=== PATIENT | female | born 1955 ===

== ENCOUNTER → 2017-07-22 | Outpatient (CLI) | payer OTHER ==
--- NOTE | 2017-07-22 16:19 | RADIOLOGY IMAGING REPORT ---
FACILITY: [facility] - [place], [place] PATIENT NAME: Nazanin Horan : 1955 MR: [id number] V: [id number] EXAM DATE: ORDERING PHYSICIAN: SELIN VELAZQUEZ TECHNOLOGIST: Location: [facility] Patient: Nazanin Horan : 1955 Visit/Account:[id number] Date of Sevice: 07/22/2017 THYROID HISTORY: Thyroid nodules COMPARISON: None. FINDINGS: SIZE: Right lobe: 6.2 x 2.6 x 1.7 cm cm Left lobe: 5.7 x 2 x 1.9 cm cm Isthmus: 7 mm PARENCHYMA: Homogeneous. NODULES: Right lobe: * Is a 3 mm well-circumscribed hypoechoic nodule in the mid right lobe Left lobe: * There are two small well-circumscribed hypoechoic nodules in the superior pole the left lobe large st measuring 4.3 mm Isthmus: * None discrete. VASCULARITY: Within normal limits. ADDITIONAL FINDINGS: None. IMPRESSION: Subcentimeter thyroid nodules bilaterally as described REFERENCE: 2015 [employer] [employer] Management Guidelines for Adult Patients with Thyroid Nodules and D ifferentiated Thyroid Cancer: The [place] [employer] Guidelines Task Force on Thyroid Nodul es and Differentiated Thyroid Cancer. SONOGRAPHIC PATTERNS: * Benign: Purely cystic nodules (no solid component); estimated risk of malignancy <1 percent; no bi opsy recommended. * Very Low Suspicion: Spongiform or partially cystic nodules without any of the sonographic features described in low, intermediate, or high suspicion patterns; estimated risk of malignancy <3 percent; consider FNA at > 2 cm (Observation without FNA is also a reasonable option). * Low Suspicion: Isoechoic or hyperechoic solid nodule, or partially cystic nodule with eccentric so lid areas, without microcalcification, irregular margin or ETE (extra-thyroidal extension), or taller than wide shape; estimated risk of malignancy 5-10 percent; recommend FNA at >1.5 cm. * Intermediate Suspicion: Hypoechoic solid nodule with smooth margins without microcalcifications, E TE (extra-thyroidal extension), or taller than wide shape; estimated risk of malignancy 10-20 percent ; recommend FNA at > 1 cm. * High Suspicion: Solid hypoechoic nodule or solid hypoechoic component of a partially cystic nodule with one or more of the following features: irregular margins (infiltrative, microlobulated), microc alcifications, taller than wide shape, rim calcifications with small extrusive soft tissue component, evidence of ETE (extra-thyroidal extension); estimated risk of malignancy >70-90 percent; recommend FNA at > 1 cm. NOTES: * Although a sonographically suspicious subcentimeter thyroid nodule without evidence of extrathyroi kannan extension or sonographically suspicious lymph nodes may be observed with close sonographic follow -up rather than pursuing immediate FNA, patient age and preference may modify decision-making. A > 50% interval increase in nodule volume and/or development of new suspicious sonographic features are felt to be a valid reasons for potential re-aspiration of a nodule previously shown to have benig n FNA cytology. Report Dictated By: Ilene Mims MD at 07/22/2017 4:13 PM Report E-Signed By: Ilene Mims MD at 07/22/2017 4:15 PM WSN:[id number]
== END ==
LOC: US 01:21
PROVIDERS: ATTEND Nurse Practitioner Family
DX: E04.1 Nontoxic single thyroid nodule (principal)
CPT/HCPCS: 76536